=== PATIENT | female | born 1955 | race African-American/Black ===

== ENCOUNTER 2016-10-10 04:39 | Inpatient (IN) | payer MEDICARE, OTHER ==
[2016-10-10] VITALS (233 sets, daily range): BP systolic 143–149; BP diastolic 82–106; PULSE 63–74; TEMP 97.2–98.1; O2SAT 78–100
[~2016-10-10] VITALS: Ht 177.8 cm; Wt 90.9 kg
[~2016-10-10 04:39] MED LIST: CELEXA40 MG PO; FLEXERIL 1010 MG/TAB PO; FLONASE NASAL S16 GM NS; GLUCOPHAGE1000 MG PO; HYDROCORTISONE30 G1 TP; HYZAAR 50-12.1 UDTAB PO; IPRATROPIUM BROM3 M1 IH; IRON325 M1 PO; KLONOPIN 0.5MG0.5 MG PO; LANTUS100 U/ML SC; LIPITOR 40MG TA40 MG PO; LYRICA 75MG CAP75 MG PO; PLENDIL10 MG PO; PROVENTIL0.09 MG/A1 IH; SINGULAIR 110 MG/TAB PO; TAMBOCOR 1100 MG/TAB PO; TOPROL XL 50MG50 MG PO; XARELTO20 MG PO
[2016-10-10] MEDS ORDERED: ULTRAM 50MG TAB50 MG PO (06:21)
[2016-10-10] MEDS ORDERED: COZAAR 50MG50 MG/TAB PO (06:25)
[2016-10-10] MEDS ORDERED: FLOVENT 220MCG7.9 GM IH (06:28)
[2016-10-10] MEDS ORDERED: PETROLATUM (06:33)
[2016-10-10 10:51] LABS: AMPHETAMINE URINE NEGATIVE; BARBITURATES URINE NEGATIVE; BENZODIAZEPINES URINE NEGATIVE; BUPRENORPHINE URINE NEGATIVE; METHADONE URINE NEGATIVE; OPIATES URINE NEGATIVE; OXYCODONE URINE NEGATIVE; PHENCYCLIDINE URINE NEGATIVE; PROPOXYPHENE URINE NEGATIVE; THC CANNABINOIDS URINE NEGATIVE
[2016-10-10] MEDS ORDERED: ANTIVERT 25MG25 MG PO (10:51)
== END 2016-10-10 12:31 | disposition home or self-care (01) | DRG 310 ==
LOC: IMCU 04:39 → ICU 05:58
PROVIDERS: Family Medicine
DX: I44.1 Atrioventricular block, second degree (principal); I48.1 Persistent atrial fibrillation; I10 Essential (primary) hypertension; E11.9 Type 2 diabetes mellitus without complications
CPT/HCPCS: 99222-AI; G0378; G0379

== ENCOUNTER 2018-08-12 08:06 | Day surgery (SDC) | payer MEDICARE, OTHER ==
[~2018-08-12] VITALS: Ht 177.8 cm; Wt 93.0 kg
[~2018-08-12 08:06] MED LIST changes: +ANTIVERT 25MG25 MG PO; +COZAAR 50MG50 MG/TAB PO; +FLOVENT 220MCG7.9 GM IH; -IRON325 M1 PO; +NATURAL IRON65 MG; +PETROLATUM; +ULTRAM 50MG TAB50 MG PO
[2018-08-12 08:40] VITALS: BP 149/87; TEMP 97.6
[2018-08-12 10:13] VITALS: BP 149/87; PULSE 68
--- NOTE | 2018-08-12 10:14 | NUR ---
See Merge report for medication administration and intr/post sedation assessments.
[2018-08-12] MEDS ORDERED: CEPHALEXIN500 M1 PO ×2 (10:34→10:36)
[2018-08-12 10:40] VITALS: BP 157/82; PULSE 67
--- NOTE | 2018-08-12 10:40 | NUR ---
pt returned to eu 15 via bed from clinical laboratory assistant, alert and orienated x3, in room, dressing over upper chest is clean and dry, takes juice, call light in reach
[2018-08-12 10:55] VITALS: BP 159/91; PULSE 68
[2018-08-12 11:15] VITALS: BP 159/89; PULSE 67; TEMP 97.8
--- NOTE | 2018-08-12 11:15 | NUR ---
sits on side of bed, tolerated well, iv d'cd intact, up in room dressed. reviewed discharge inst. 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 pt discharged via w/c to car with at 1130
== END 2018-08-12 11:30 | disposition home or self-care (01) ==
LOC: COL.CAR 08:06
DX: I48.91 Unspecified atrial fibrillation (principal); I48.3 Typical atrial flutter; I10 Essential (primary) hypertension; K21.9 Gastro-esophageal reflux disease without esophagitis; Z79.01 Long term (current) use of anticoagulants; G62.9 Polyneuropathy, unspecified; J45.909 Unspecified asthma, uncomplicated; M43.07 Spondylolysis, lumbosacral region; E78.5 Hyperlipidemia, unspecified; F32.9 Major depressive disorder, single episode, unspecified; F41.9 Anxiety disorder, unspecified; E11.9 Type 2 diabetes mellitus without complications; Z98.51 Tubal ligation status; Z82.49 Family history of ischemic heart disease and other diseases of the circulatory system; Z80.9 Family history of malignant neoplasm, unspecified; E66.9 Obesity, unspecified; Z98.890 Other specified postprocedural states; Z86.79 Personal history of other diseases of the circulatory system; Q21.1 Atrial septal defect
CPT/HCPCS: J0690; J2250; J3010

== ENCOUNTER → 2020-09-13 | Outpatient (CLI) | payer MEDICARE, OTHER ==
[~2020-09-13] MED LIST changes: +CEPHALEXIN500 M1 PO
== END ==
LOC: MHCPAIN 13:59
DX: M47.816 Spondylosis without myelopathy or radiculopathy, lumbar region (principal); M54.5 Low back pain; M53.3 Sacrococcygeal disorders, not elsewhere classified; M25.552 Pain in left hip
CPT/HCPCS: G0463

== ENCOUNTER → 2021-06-15 | Outpatient (CLI) | payer MEDICARE, OTHER | LOC: MHCPAIN 10:56 | DX: M47.816 Spondylosis without myelopathy or radiculopathy, lumbar region (principal); M53.3 Sacrococcygeal disorders, not elsewhere classified; M54.16 Radiculopathy, lumbar region | CPT/HCPCS: G0463 ==

== ENCOUNTER → 2021-06-30 | Outpatient (CLI) | payer MEDICARE, OTHER | LOC: MHCPAIN 07:54 | DX: M47.817 Spondylosis without myelopathy or radiculopathy, lumbosacral region (principal); M53.3 Sacrococcygeal disorders, not elsewhere classified; M54.16 Radiculopathy, lumbar region | CPT/HCPCS: J1100; Q9967 ==

== ENCOUNTER → 2021-08-02 | Outpatient (CLI) | payer MEDICARE, OTHER | LOC: MHCPAIN 09:13 | DX: M47.816 Spondylosis without myelopathy or radiculopathy, lumbar region (principal); M53.3 Sacrococcygeal disorders, not elsewhere classified; M54.16 Radiculopathy, lumbar region | CPT/HCPCS: G0463 ==

== ENCOUNTER → 2021-08-11 | Outpatient (CLI) | payer MEDICARE, OTHER | LOC: MHCPAIN 08:11 | DX: M47.817 Spondylosis without myelopathy or radiculopathy, lumbosacral region (principal); M53.3 Sacrococcygeal disorders, not elsewhere classified; M54.16 Radiculopathy, lumbar region | CPT/HCPCS: J1100; Q9967 ==

== ENCOUNTER → 2021-08-29 | Outpatient (CLI) | payer MEDICARE, OTHER | LOC: MHCPAIN 10:03 | DX: M47.817 Spondylosis without myelopathy or radiculopathy, lumbosacral region (principal); M54.50 Low back pain, unspecified; M53.3 Sacrococcygeal disorders, not elsewhere classified | CPT/HCPCS: G0463 ==

== ENCOUNTER → 2021-09-12 | Outpatient (CLI) | payer MEDICARE, OTHER | LOC: MHCPAIN 12:09 | DX: M47.817 Spondylosis without myelopathy or radiculopathy, lumbosacral region (principal); M54.50 Low back pain, unspecified; M53.3 Sacrococcygeal disorders, not elsewhere classified ==

== ENCOUNTER → 2021-09-21 | Outpatient (CLI) | payer MEDICARE, OTHER | LOC: MHCPAIN 08:53 | DX: M47.817 Spondylosis without myelopathy or radiculopathy, lumbosacral region (principal); M54.50 Low back pain, unspecified; M53.3 Sacrococcygeal disorders, not elsewhere classified | CPT/HCPCS: G0463 ==

== ENCOUNTER → 2021-09-22 | Outpatient (CLI) | payer MEDICARE, OTHER | LOC: MHCPAIN 07:30 | DX: M47.817 Spondylosis without myelopathy or radiculopathy, lumbosacral region (principal); M54.50 Low back pain, unspecified; M53.3 Sacrococcygeal disorders, not elsewhere classified ==

== ENCOUNTER → 2021-11-24 | Outpatient (CLI) | payer MEDICARE, OTHER | LOC: MHCPAIN 08:00 | DX: M47.817 Spondylosis without myelopathy or radiculopathy, lumbosacral region (principal); M53.3 Sacrococcygeal disorders, not elsewhere classified; M54.50 Low back pain, unspecified | CPT/HCPCS: G0463; J1100; J2250; J3010 ==

== ENCOUNTER → 2022-01-16 | Outpatient (CLI) | payer MEDICARE, OTHER | LOC: MHCPAIN 09:28 | DX: M53.3 Sacrococcygeal disorders, not elsewhere classified (principal); M54.59 Other low back pain; M25.552 Pain in left hip; I48.91 Unspecified atrial fibrillation | CPT/HCPCS: G0463 ==

== ENCOUNTER → 2022-03-14 | Outpatient (CLI) | payer MEDICARE, OTHER | LOC: MHCPAIN 08:48 | DX: M53.3 Sacrococcygeal disorders, not elsewhere classified (principal); M47.896 Other spondylosis, lumbar region; M54.16 Radiculopathy, lumbar region | CPT/HCPCS: G0463 ==

== ENCOUNTER → 2022-07-18 | Outpatient (CLI) | payer MEDICARE, OTHER | LOC: MHCPAIN 07:58 → MC.RAD 08-11 10:15 | DX: Z12.31 Encounter for screening mammogram for malignant neoplasm of breast (principal); M47.817 Spondylosis without myelopathy or radiculopathy, lumbosacral region; M54.50 Low back pain, unspecified; M53.3 Sacrococcygeal disorders, not elsewhere classified | CPT/HCPCS: G0463 ==

== ENCOUNTER → 2022-08-03 | Outpatient (CLI) | payer MEDICARE, OTHER | LOC: MHCPAIN 07-18 12:59 | DX: M47.817 Spondylosis without myelopathy or radiculopathy, lumbosacral region (principal); M54.50 Low back pain, unspecified | CPT/HCPCS: J1100; J2250; J2370; J3010 ==